=== PATIENT | male | born 1965 | race Caucasian/White ===

== ENCOUNTER 2021-08-05 20:45 | Emergency (ER) | payer MEDICARE ==
[2021-08-05] MEDS ORDERED: BABY ASPIRIN 81 MG CHEW PO ONE (21:01)
--- NOTE | 2021-08-05 21:01 | ERPHSYRPT ---
- History of Present Illness Time Seen by Provider: 08/05/21 21:01 Source: patient Exam Limitations: no limitations Physician History: This is a 55-year-old white male patient of Dr. Montano who has a history of COPD as well as leukemia who underwent a bone marrow biopsy on 07/19/2021 who earlier today went out to an oxygen and there were a lot of dust in the air. Since that time, he has had increasing shortness of breath. He states that he has been coughing quite a bit since that exposure to the dust. He says the only time he has chest pain is when he is coughing. Patient also has a history of colon cancer in the past. Patient denies fever. He denies abdominal pain. He had no nausea vomiting or diarrhea. Patient has been using inhalers but they have not helped. Timing/Duration: today Severity of Dyspnea-Max: mild (To moderate) Severity of Dyspnea-Current: mild (To moderate) Possible Cause: occasional episodes Modifying Factors: Improves With: coughing, oxygen, rest Associated Symptoms: cough Allergies/Adverse Reactions: No Known Drug Allergies Allergy (Unverified 08/05/21 20:51) Home Medications: Albuterol Sulfate [Albuterol Sulfate Hfa] 3 puffs IH DAILY 08/05/21 [History] Atorvastatin Calcium 20 mg PO DAILY 08/05/21 [History] Famotidine [Pepcid] 40 mg PO DAILY 08/05/21 [History] Fluticasone/Umeclidin/Vilanter [Trelegy Ellipta 200-62.5-25] 1 puff IH DAILY 08/05/21 [History] Isosorbide Mononitrate 30 mg [Imdur 30 MG] 30 mg PO DAILY 08/05/21 [History] Paroxetine HCl 10 mg PO DAILY 08/05/21 [History] Tamsulosin HCl 0.4 mg PO DAILY 08/05/21 [History] Hx Tetanus, Diphtheria Vaccination/Date Given: No Hx Influenza Vaccination/Date Given: No Hx Pneumococcal Vaccination/Date Given: No Travel Risk - International Travel Have you traveled outside of the country in past 3 weeks: No - Coronavirus Screening Are you exhibiting any of the following symptoms?: Yes Symptoms: Cough: New Onset, Shortness of Breath - Review of Systems Constitutional: No Symptoms Eyes: No Symptoms Ears, Nose, & Throat: No Symptoms Respiratory: Cough, Dyspnea Cardiac: No Symptoms Abdominal/Gastrointestinal: No Symptoms Genitourinary Symptoms: No Symptoms Musculoskeletal: No Symptoms Skin: No Symptoms Neurological: No Symptoms Psychological: No Symptoms Endocrine: No Symptoms Hematologic/Lymphatic: No Symptoms Immunological/Allergic: No Symptoms All Other Systems: Reviewed and Negative - Past Medical History Pertinent Past Medical History: No Neurological History: No Pertinent History ENT History: No Pertinent History Cardiac History: No Pertinent History Respiratory History: No Pertinent History Endocrine Medical History: No Pertinent History Musculoskeletal History: No Pertinent History GI Medical History: No Pertinent History History: No Pertinent History Psycho-Social History: No Pertinent History - Past Surgical History Past Surgical History: Yes Neuro Surgical History: No Pertinent History Cardiac: No Pertinent History Respiratory: No Pertinent History Gastrointestinal: No Pertinent History Genitourinary: No Pertinent History Musculoskeletal: Other Male Surgical History: No Pertinent History Other Surgical History: Pt states he tore a ligament in left hand and had surgery on it - Social History Smoking Status: Current every day smoker How long have you smoked: 20 yrs Exposure to second hand smoke: Yes Drug Use: none Patient Lives Alone: No - Nursing Vital Signs Nursing Vital Signs: Initial Vital Signs Temperature 98.1 F 08/05/21 20:46 Pulse Rate 84 08/05/21 20:46 Respiratory Rate 26 H 08/05/21 20:46 Blood Pressure 153/126 08/05/21 20:46 O2 Sat by Pulse Oximetry 98 08/05/21 20:46 Pain Scale Pain Intensity 0 - Physical Exam General Appearance: mild distress, alert, anxiety Eye Exam: PERRL/EOMI, eyes nml inspection Ears, Nose, Throat Exam: hearing grossly normal, normal ENT inspection, normal pharynx Neck Exam: normal inspection, non-tender, supple, full range of motion Respiratory Exam: normal breath sounds, chest tenderness, lungs clear Cardiovascular/Chest Exam: normal heart sounds, regular rate/rhythm, normal peripheral pulses Abdominal/Gastrointestinal Exam: soft, normal bowel sounds, No tenderness Rectal Exam: not done Extremity Exam: non-tender, normal range of motion, normal inspection Neurologic Exam: alert, oriented x 3, cooperative, repatcher II-XII nml as tested, normal mood/affect, nml cerebellar function, nml station & gait, sensation nml Skin Exam: normal color, warm, dry Lymphatic Exam: No adenopathy SpO2 Interpretation: normal O2 Delivery: Room Air - Course Nursing assessment & vital signs reviewed: Yes EKG Interpreted by Me: RATE (80), Sinus Rhythm, NORMAL AXIS, NORMAL INTERVALS, NORMAL QRS, NORMAL ST-T, Non-specific ST Changes, Other (No acute ischemic changes. No comparison EKG available.) Ordered Tests: Active Orders 24 hr Category Date Time Status Clinical Engineering Director STAT Care 08/05/21 21:01 Active EKG-ER Only STAT Care 08/05/21 21:01 Active IV Insertion STAT Care 08/05/21 21:01 Active Pulse Oximetry (ED) STAT Care 08/05/21 21:01 Active CHEST 1 VIEW (PORTABLE) Stat Exams 08/05/21 21:01 Completed CBC W DIFF Stat Lab 08/05/21 21:10 Completed CMP Stat Lab 08/05/21 21:10 Completed D-DIMER QUANTITATIVE Stat Lab 08/05/21 21:10 Completed Manual Differential NC Stat Lab 08/05/21 21:10 Completed NT PRO BNP Stat Lab 08/05/21 21:10 Completed PROTIME WITH INR Stat Lab 08/05/21 21:10 Completed TROPONIN Q3H Lab 08/05/21 21:10 Completed TROPONIN Q3H Lab 08/06/21 00:15 Ordered TROPONIN Q3H Lab 08/06/21 03:15 Ordered TROPONIN Q3H Lab 08/06/21 06:15 Ordered TROPONIN Q3H Lab 08/06/21 09:15 Ordered Respiratory Therapy Assessment DAILY RT 08/05/21 21:42 Completed Medication Summary Discontinued Medications Generic Name Dose Route Start Last Admin Trade Name Freq PRN Reason Stop Dose Admin Albuterol/Ipratropium 3 ml 08/05/21 21:21 08/05/21 21:38 Duoneb 0.5-3 Mg/3 Ml Neb IH 08/05/21 21:22 3 ml STAT ONE Administration Albuterol/Ipratropium Confirm 08/05/21 21:37 Duoneb 0.5-3 Mg/3 Ml Neb Administered 08/05/21 21:38 Dose 3 ml IH .STK-MED ONE Aspirin 324 mg 08/05/21 21:01 08/05/21 22:06 Baby Aspirin 81 Mg Chew PO 08/05/21 21:02 324 mg STAT ONE Administration Aspirin Confirm 08/05/21 22:05 Baby Aspirin 81 Mg Chew Administered 08/05/21 22:06 Dose 324 mg .ROUTE .STK-MED ONE Methylprednisolone Sodium 0 mg 08/05/21 21:21 08/05/21 22:07 Succinate 125 mg/ Sterile IV 08/05/21 21:22 125 mg Water 2 ml STAT ONE Administration Methylprednisolone Sodium Succinate Confirm 08/05/21 22:05 Solu-Medrol Administered 08/05/21 22:06 Dose 125 mg .ROUTE .STK-MED ONE Sterile Water Confirm 08/05/21 22:06 Sterile H2o 10 Ml Administered 08/05/21 22:07 Dose 10 ml IJ .STK-MED ONE Lab/Rad Data: Laboratory Result Diagrams 08/05/21 21:10 08/05/21 21:10 Laboratory Results 08/05/21 08/05/21 08/05/21 Range/Units 21:10 21:10 21:10 WBC (4.0-10.5) K/mm3 RBC (4.1-5.6) M/mm3 Hgb (12.5-18.0) gm/dl Hct (42-50) % MCV (78-100) fl MCH (26-32) pg MCHC (32-36) g/dl RDW (11.5-14.0) % Plt Count (150-450) K/mm3 MPV (7.5-11.0) fl PT 12.9 H (9.4-12.5) SECONDS INR 1.09 (0.8-3.0) D-Dimer < 215 L (215-500) ng/mL Sodium 137 (137-145) mmol/L Potassium 4.3 (3.5-5.1) mmol/L Chloride 95 L (98-107) mmol/L Carbon Dioxide 33 H (22-30) mmol/L Anion Gap 12.9 (5-15) MEQ/L BUN 13 (9-20) mg/dL Creatinine 1.01 (0.66-1.25) mg/dL Estimated GFR > 60.0 ML/MIN Glucose 96 (74-106) mg/dL Calcium 9.3 (8.4-10.2) mg/dL Total Bilirubin 0.70 (0.2-1.3) mg/dL AST 19 (17-59) U/L ALT 12 (0-50) U/L Alkaline Phosphatase 97 (38-126) U/L Troponin I < 0.012 (0.000-0.034) ng/mL NT-Pro-B Natriuret Pep 50.8 (0-900) pg/mL Serum Total Protein 7.0 (6.3-8.2) g/dL Albumin 4.6 (3.5-5.0) g/dL 08/05/21 Range/Units 21:10 WBC 18.8 H (4.0-10.5) K/mm3 RBC 5.18 (4.1-5.6) M/mm3 Hgb 15.6 (12.5-18.0) gm/dl Hct 48.8 (42-50) % MCV 94.2 (78-100) fl MCH 30.1 (26-32) pg MCHC 32.0 (32-36) g/dl RDW 13.1 (11.5-14.0) % Plt Count 75 L (150-450) K/mm3 MPV 12.8 H (7.5-11.0) fl PT (9.4-12.5) SECONDS INR (0.8-3.0) D-Dimer (215-500) ng/mL Sodium (137-145) mmol/L Potassium (3.5-5.1) mmol/L Chloride (98-107) mmol/L Carbon Dioxide (22-30) mmol/L Anion Gap (5-15) MEQ/L BUN (9-20) mg/dL Creatinine (0.66-1.25) mg/dL Estimated GFR ML/MIN Glucose (74-106) mg/dL Calcium (8.4-10.2) mg/dL Total Bilirubin (0.2-1.3) mg/dL AST (17-59) U/L ALT (0-50) U/L Alkaline Phosphatase (38-126) U/L Troponin I (0.000-0.034) ng/mL NT-Pro-B Natriuret Pep (0-900) pg/mL Serum Total Protein (6.3-8.2) g/dL Albumin (3.5-5.0) g/dL - Progress Progress: improved, re-examined Air Movement: good Progress Note: 08/05/21 21:44 Chest x-ray shows no acute findings. There are chronic, COPD changes. 08/05/21 22:46 Medical decision making: This patient likely was exposed to dust outside in an auction which precipitated the coughing and mild shortness of breath spells. After using DuoNeb nebulizer treatment here in the emergency room and steroids he is breathing well. He has no chest pain. Patient's troponin is normal. The D-dimer is also normal. His chest x-ray shows no acute findings. His white count is elevated but he has leukemia which she is aware of and his platelet count is low which he is also aware of and may be secondary to leukemia. 08/05/21 22:49 Blood Culture(s) Obtained: No Counseled pt/family regarding: lab results, diagnosis, need for follow-up, rad results - Departure Departure Disposition: Home Clinical Impression: Bronchitis Condition: Stable Critical Care Time: No Referrals: AIMEE MONTANO [Primary Care Provider] - Additional Instructions: Drink plenty fluids. Take your medications and inhalers as prescribed. 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 Follow-up with your primary care physician for further management. Prescriptions: Prednisone 10 mg [Deltasone 10 mg] 10 mg PO TID #12 tablet
[2021-08-05] MEDS ORDERED: DUONEB 0.5-3 MG/3 ml Neb IH ONE ×2 (21:21→21:37)
[2021-08-05] MEDS ORDERED: solu-MEDROL 125 MG, Sterile H2O 10 ml 2 ML IV ONE ×2 (21:21)
[2021-08-05 21:34] LABS: Hematocrit 48.8 % (42-50); Hemoglobin 15.6 gm/dl (12.5-18.0); Mean Cell Volume 94.2 fl (78-100); Mean Corpuscular Hemoglobin 30.1 pg (26-32); Mean Platelet Volume 12.8 fl (7.5-11.0); Platelet Count 75 K/mm3 (150-450); Red Blood Count 5.18 M/mm3 (4.1-5.6); Red Cell Distribution Width 13.1 % (11.5-14.0); White Blood Count 18.8 K/mm3 (4.0-10.5)
[2021-08-05 21:39] LABS: INR 1.09 (0.8-3.0); PROTIME 12.9 SECONDS (9.4-12.5)
--- NOTE | 2021-08-05 21:47 | XRAY ---
Indication: Short of breath. Comparison: September 15, 2006. Portable chest remains clear again with incidental COPD and a few tiny calcified granulomas. Heart not enlarged. Bony thorax intact. No new/acute findings.
[2021-08-05 21:52] LABS: ALBUMIN 4.6 g/dL (3.5-5.0); ALKALINE PHOSPHATASE 97 U/L (38-126); ANION GAP 12.9 MEQ/L (5-15); BLOOD UREA NITROGEN 13 mg/dL (9-20); CHLORIDE 95 mmol/L (98-107); Calcium 9.3 mg/dL (8.4-10.2); Carbon Dioxide 33 mmol/L (22-30); Creatinine 1 1.01 mg/dL (0.66-1.25); D-DIMER QUANTITATIVE < 215 ng/mL (215-500); EST GLOMERULAR FILTRATION RATE > 60.0 ML/MIN; Glucose 96 mg/dL (74-106); NT PRO BNP 50.8 pg/mL (0-900); Potassium 4.3 mmol/L (3.5-5.1); SGOT/AST 19 U/L (17-59); SGPT/ALT 12 U/L (0-50); SODIUM 137 mmol/L (137-145)
[2021-08-05] MEDS ORDERED: solu-MEDROL ONE (22:05)
[2021-08-05] MEDS ORDERED: BABY ASPIRIN 81 MG CHEW ONE (22:05)
[2021-08-05] MEDS ORDERED: Sterile H2O 10 ml IJ ONE (22:06)
[2021-08-05 23:06] VITALS: BP 145/89; PULSE 76; O2SAT 96
[2021-08-06 00:37] LABS: Eosinophil 1 % (0.00-3.0); Lymphocytes 69 % (24-44); Monocyte 9 % (0.0-12.0); Neutrophils 21 % (36.-66.); Platelet Estimate NORMAL (NORMAL); Total Cells Counted 100
== END 2021-08-05 23:05 | disposition home or self-care (01) ==
LOC: ED 20:45
DX: J40 Bronchitis, not specified as acute or chronic (principal); J44.9 Chronic obstructive pulmonary disease, unspecified; Z79.899 Other long term (current) drug therapy; R05 Cough
CPT/HCPCS: 36000; 36415; 71045; 80053; 83880; 84484; 85025; 85379; 85610; 93005; 93041; 94640; 94760; 96374; 99284; J2930; A9270-GY

== ENCOUNTER 2021-09-22 07:50 | Day surgery (SDC) | payer MEDICARE ==
--- NOTE | 2021-09-19 10:57 | HP ---
DATE OF SURGERY: 09/22/2021 HISTORY OF PRESENT ILLNESS: The patient is a 55-year-old male presents for colonoscopy. He has not had colonoscopy to date. Presents with a positive Cologuard on exam. PAST MEDICAL HISTORY: Heart disease per chart. PAST SURGICAL HISTORY: None reported. ALLERGIES: NKDA. MEDICATIONS: Aspirin and per chart. FAMILY HISTORY: None reported. SOCIAL HISTORY: None reported. REVIEW OF SYSTEMS: CONSTITUTIONAL: Denies fever or chills. CHEST: Denies shortness of breath. CVS: Denies chest pain. ABDOMEN: Denies abdominal pain, nausea, vomiting, diarrhea, constipation or rectal bleeding. PHYSICAL EXAMINATION: GENERAL: No acute distress. CHEST: Nonlabored. No shortness of breath. CVS: Regular rate and rhythm. ABDOMEN: Soft, nontender. IMPRESSION: Positive Cologuard. PLAN: Colonoscopy with Dr. Cortez Johnson. As dictated by Lina Monreal NP.
[~2021-09-22 07:50] MED LIST: Lactated Ringers 1,000 ML IV SCH
[2021-09-22] MEDS ORDERED: Lactated Ringers 1,000 ML IV ONE (07:58)
[2021-09-22] MEDS ORDERED: DIPRIVAN 200 MG/20 ML IV ONE ×2 (10:13→10:47)
--- NOTE | 2021-09-22 13:48 | OP ---
SURGERY DATE/TIME: 09/22/2021 1016 PREOPERATIVE DIAGNOSIS: Positive Cologuard. POSTOPERATIVE DIAGNOSIS: Four significant polyps with one being fairly large. There are six samples, three of them of the one large polyp including polyp, including biopsy, including the base. PROCEDURE: Colonoscopy complete to cecum. SURGEON: Cortez Johnson M.D. ANESTHESIA: MAC. COMPLICATIONS: None. CONDITION: Stable. INDICATION: The patient had positive Cologuard and no previous scope. DESCRIPTION OF PROCEDURE: Taken to endoscopy. MAC sedation. Anal digital examination satisfactory. Scope introduced. A satisfactory prep. There was a small polyp in the distal sigmoid that was seen going up. The hot patch was placed. On arrival to the cecum, there was a 1 cm polyp taken in the cecum. The base was satisfactory. Base of the cecum and ileocecal valve was all normal. Ascending, hepatic, transverse, splenic, descending, sigmoid, in the sigmoid there were two polyps about 1 cm each taken with hot biopsy forceps. There was a major polyp 3.5 cm in size taken in two pieces and then the base was separately taken and the base was sent as "Base of large polyp". There had been a biopsy of the polyp also. The patient tolerated the procedure satisfactorily. The polyps seemed grossly benign. There certainly could be foci of cancer in the tip of the big polyp but I think the stalk was totally clear and it looked fairly friendly. It was not tattooed. I think some residual stalk at the very base is probably visible and the scar will be clearly visible also. Scope withdrawn. The patient tolerated the procedure satisfactorily.
== END 2021-09-22 12:05 | disposition home or self-care (01) ==
LOC: SDC 07:50
PROVIDERS: ATTEND Surgery
DX: D12.5 Benign neoplasm of sigmoid colon (principal); R19.5 Other fecal abnormalities
CPT/HCPCS: 88305; J2704